=== PATIENT | female | born 1975 | race African-American/Black ===

== ENCOUNTER 2019-02-26 21:59 | Emergency (ER) | payer MEDICAID ==
[~2019-02-26] VITALS: Ht 172.7 cm; Wt 64.0 kg
[2019-02-26] MEDS ORDERED: ACETAMINOPHEN 325MG TABLET PO ONE (22:45)
[2019-02-27] MEDS ORDERED: KETOROLAC 60MG/2ML VIAL IM ONE (00:15)
[2019-02-27 02:56] VITALS: BP 120/76
== END 2019-02-27 03:20 | disposition home or self-care (01) ==
LOC: ER 21:59
DX: M54.5 Low back pain (principal); Z87.81 Personal history of (healed) traumatic fracture; X50.9XXA Other and unspecified overexertion or strenuous movements or postures, initial encounter; Y93.89 Activity, other specified; Y92.018 Other place in single-family (private) house as the place of occurrence of the external cause
CPT/HCPCS: 96372; 99283; J1885

== ENCOUNTER 2024-08-11 21:56 | Emergency (ER) | payer MEDICAID ==
[~2024-08-11] VITALS: Ht 180.3 cm; Wt 70.3 kg
[2024-08-11 22:01] VITALS: O2SAT 100
[2024-08-12 03:35] LABS: BASOPHILS % 0.9 % (0.0-2.0); DIFFERENTIAL COMMENT 0; EOSINOPHILS % 1.2 % (0.0-5.0); HEMATOCRIT. 27.7 % (36.0-48.0); HEMOGLOBIN. 8.7 g/dL (12.0-16.0); LYMPHOCYTES % 22.2 % (20.0-50.0); MEAN CORPUSCULAR HEMOGLOBIN 23.1 pg (28.0-32.0); MEAN CORPUSCULAR HGB CONC 31.3 g/dL (31.0-37.0); MEAN CORPUSCULAR VOLUME 73.7 fL (81.0-99.0); MEAN PLATELET VOLUME 6.8 fl (7.4-10.4); MONOCYTES % 7.8 % (2.0-8.0); NEUTROPHILS % 67.9 % (40.0-76.0); PLATELET 585 x1000/uL (130-400); RED BLOOD CELL COUNT 3.75 mill/uL (4.2-5.4); RED CELL DISTRIBUTION WIDTH 20.3 % (11.6-14.6); WHITE BLOOD COUNT 8.4 x1000/uL (4.5-11.0)
[2024-08-12 03:49] LABS: CHLORIDE 106 mEq/L (98-107); POTASSIUM 3.7 mEq/L (3.5-5.1); SODIUM 136 mEq/L (136-145)
[2024-08-12 03:50] LABS: CARBON DIOXIDE 22 mEq/L (21-32)
[2024-08-12 03:51] LABS: CALCIUM 8.9 mg/dL (8.7-10.4)
[2024-08-12 03:55] LABS: CREATININE 0.7 mg/dL (0.6-1.0); GLUCOSE 95 mg/dL (70-105); UREA NITROGEN BLOOD 5 mg/dL (9-23)
[2024-08-12 04:27] LABS: PROTHROMBIN TIME 10.8 sec (9.6-11.0)
[2024-08-12] MEDS ORDERED: ACET-2708 MT (04:32)
[2024-08-12 04:58] LABS: CLARITY URINE TURBID (CLEAR); COLOR URINE YELLOW (YELLOW); GLUCOSE URINE NEGATIVE (NEGATIVE); KETONES URINE NEGATIVE (NEGATIVE); LEUKOCYTE ESTERASE URINE 3+ (NEGATIVE); NITRITE URINE POSITIVE (NEGATIVE); OCCULT BLOOD URINE 2+ (NEGATIVE); PH URINE 6.5 (4.5-8.0); PROTEIN URINE 1+ (NEGATIVE); SPECIFIC GRAVITY URINE 1.018 (1.005-1.030); UROBILINOGEN URINE 0.2 E.U./dL (0.2-1.0)
[2024-08-12] MEDS ORDERED: FERR324T4 MT (04:58)
[2024-08-12 05:09] VITALS: BP 142/82; PULSE 98; RESP 16; TEMP 36.78072; O2SAT 100
[2024-08-12 05:29] LABS: WBC URINE TNTC /hpf (0-2)
[2024-08-12 05:30] LABS: BACTERIA URINE 3+; SQUAMOUS EPITHELIAL CELL URINE 2+ /lpf (RARE/1+)
== END 2024-08-12 05:26 | disposition home or self-care (01) ==
LOC: ER 21:56
DX: D50.9 Iron deficiency anemia, unspecified (principal); F10.90 Alcohol use, unspecified, uncomplicated; Y90.9 Presence of alcohol in blood, level not specified
CPT/HCPCS: 36415; 80048; 81003; 85025; 87077; 87186; 93005; 93970; 99284